=== PATIENT | male | born 1990 | race Caucasian/White ===

== ENCOUNTER 2023-09-25 01:45 | Day surgery (SDC) | payer MEDICAID ==
[~2023-09-25] VITALS: Ht 167.6 cm; Wt 95.4 kg
[2023-09-25 02:00] VITALS: O2SAT 97
[2023-09-25 05:22] LABS: BASOPHILS % 0.2 % (0.0-2.0); EOSINOPHILS % 0.8 % (0.0-5.0); HEMATOCRIT. 45.7 % (42.0-52.0); HEMOGLOBIN. 15.9 g/dL (14.0-18.0); LYMPHOCYTES % 19.2 % (20.0-50.0); MEAN CORPUSCULAR HEMOGLOBIN 31.5 pg (28.0-32.0); MEAN CORPUSCULAR HGB CONC 34.8 g/dL (31.0-37.0); MEAN CORPUSCULAR VOLUME 90.6 fL (80.0-94.0); MONOCYTES % 8.6 % (2.0-8.0); NEUTROPHILS % 71.2 % (40.0-76.0); PLATELET 224 x1000/uL (130-400); RED BLOOD CELL COUNT 5.04 mill/uL (4.7-6.1); RED CELL DISTRIBUTION WIDTH 12.5 % (11.6-14.6); WHITE BLOOD COUNT 11.4 x1000/uL (4.5-11.0)
[2023-09-25 05:33] LABS: PROTHROMBIN TIME 10.8 sec (9.6-11.0)
[2023-09-25 05:34] LABS: CHLORIDE 108 mEq/L (98-107); INDEX HEMOLYSI 1 (1-3); INDEX ICTERIC 1 (1-4); INDEX LIPEMIC 1 (1-3); POTASSIUM 4.1 mEq/L (3.5-5.1); SODIUM 142 mEq/L (136-145)
[2023-09-25 05:37] LABS: ALBUMIN 4.3 g/dL (3.4-5.0); CALCIUM 9.2 mg/dL (8.5-10.1); CARBON DIOXIDE 30 mEq/L (21-32); UREA NITROGEN BLOOD 12 mg/dL (7-21)
[2023-09-25 05:42] LABS: ALANINE AMINOTRANSFERASE 48 IU/L (13-61); ASPARTATE AMINOTRANSFERASE 25 IU/L (15-37); BILIRUBIN TOTAL 0.7 mg/dL (0.1-1.0); CREATININE 0.8 mg/dL (0.6-1.3); GLUCOSE 107 mg/dL (70-105); PROTEIN TOTAL 8.3 g/dL (6.0-8.3)
[2023-09-25] MEDS ORDERED: IOHEXOL-300 100 ML BOTTLE ONE (07:22)
[2023-09-25] MEDS ORDERED: SODIUM CHLORIDE 0.9% 1,000 ML IV ONE (07:30)
[2023-09-25] MEDS ORDERED: MORPHINE SULFATE 4 MG/ML CPJ (NOT FOR IM USE) IV ONE (07:30)
[2023-09-25 08:30] VITALS: BP 130/79; PULSE 98; RESP 20; TEMP 98.3
[2023-09-25 09:11] LABS: CLARITY URINE CLEAR (CLEAR); COLOR URINE YELLOW (YELLOW); GLUCOSE URINE NEGATIVE (NEGATIVE); KETONES URINE NEGATIVE (NEGATIVE); LEUKOCYTE ESTERASE URINE NEGATIVE (NEGATIVE); NITRITE URINE NEGATIVE (NEGATIVE); OCCULT BLOOD URINE NEGATIVE (NEGATIVE); PH URINE 5.5 (4.5-8.0); PROTEIN URINE NEGATIVE (NEGATIVE); SPECIFIC GRAVITY URINE 1.076 (1.005-1.030); UROBILINOGEN URINE 0.2 E.U./dL (0.2-1.0)
[2023-09-25] MEDS ORDERED: SKIN ADHESIVE 0.7 GM EA TOP ONE (10:25)
[2023-09-25] MEDS ORDERED: BUPIVACAINE HCL/PF 0.5% (5MG/ML) 10ML ONE (10:25)
[2023-09-25] MEDS ORDERED: CEFAZOLIN SODIUM 1000MG/VIAL ONE (10:57)
[2023-09-25] MEDS ORDERED: MIDAZOLAM HCL 2 MG/2 ML VIAL ONE (10:59)
[2023-09-25] MEDS ORDERED: FENTANYL CITRATE/PF 50MCG/ML 2ML VIAL ONE (11:00)
[2023-09-25] MEDS ORDERED: LIDOCAINE 2% 6ML GLYDO MM ONE ×2 (11:17)
[2023-09-25] MEDS ORDERED: PROPOFOL 200MG/20ML VIAL IV ONE (11:17)
[2023-09-25] MEDS ORDERED: DEXAMETHASONE 4MG/ML 1ML VIAL ONE (11:17)
[2023-09-25] MEDS ORDERED: ONDANSETRON HCL 4MG/2ML INJ ONE (11:17)
[2023-09-25] MEDS ORDERED: LIDOCAINE HCL 1% 20ML VIAL (Pyxis) INJ ONE (11:18)
[2023-09-25] MEDS ORDERED: GLYCOPYRROLATE 0.2 MG/ML 2ML VIAL ONE (11:19)
[2023-09-25] MEDS ORDERED: ONDANSETRON HCL 4MG/2ML INJ IV PRN (11:30)
[2023-09-25] MEDS ORDERED: MEPERIDINE HCL/PF 25MG/ML CPJ IV PRN (11:30)
[2023-09-25] MEDS ORDERED: FENTANYL CITRATE/PF 50MCG/ML 2ML VIAL IV PRN (11:30)
[2023-09-25] MEDS ORDERED: HYDROMORPHONE HCL/PF 2MG/ML CPJ IV PRN (11:30)
[2023-09-25] MEDS ORDERED: KETOROLAC 30MG/ML VIAL ONE (11:35)
[2023-09-25] MEDS ORDERED: CEFOXITIN SODIUM 2 G in DEXT 5% WATER 100 ML IV SCH (12:00)
[2023-09-25] MEDS ORDERED: HYDROCODONE/ACETAMINOPHEN 5/325MG TABLET PO NR (12:30)
[2023-09-25] MEDS ORDERED: ACETAMINOPHEN 325MG TABLET PO NR (13:15)
== END 2023-09-25 14:05 | disposition admitted as inpatient to this hospital (09) ==
LOC: ER 01:45 → OR 11:01 → CANBEDREQ 14:54
PROVIDERS: ATTEND Surgery
DX: K36 Other appendicitis (principal); Z79.899 Other long term (current) drug therapy; Z98.890 Other specified postprocedural states
CPT/HCPCS: 44970; 99285; 74177; 80053; 81003; 83690; 85025; 85610; 86850; 86900; 86901; 36415; 88304; 96361; 96374; J3010; Q9967; J3490 ×3; J0690; J0694; J1100; J1885; J2250; J2405; J2704; J2270; J7060; J7030